=== PATIENT | female | born 1965 | race Caucasian/White ===

== ENCOUNTER → 2016-06-15 | Outpatient (CLI) | payer BC ==
[~2016-06-15] VITALS: Ht 165.1 cm; Wt 107.5 kg
[~2016-06-15] MED LIST: CIPRO500 MG PO; COMBIVENT RESPIM4 GM IH; DIOVAN80 MG PO; FISH OIL 1,0001 EACH PO; GLUCOPHAGE1000 MG PO; LOMOTIL TABLET1 EACH PO; Lopressor PO; METFORMIN HCL1000 MG PO; PIOGLITAZONE HC30 MG PO; PRAVACHOL20 MG PO; PRAVASTATIN SOD20 MG PO; QVAR 40 MCG IN7.3 GM IH; SIMVASTATIN20 MG PO; SYMBICORT60 INHALAT IH; VALSARTAN80 MG PO; VENTOLIN HFA18 GM IH; ZOLOFT50 MG PO
[2016-06-15 09:41] LABS: POINT-OF-CARE METER ID UU13113694
== END | disposition home or self-care (01) ==
LOC: AMB 08:46
PROVIDERS: Internal Medicine
DX: Z12.11 Encounter for screening for malignant neoplasm of colon (principal); D12.3 Benign neoplasm of transverse colon; D12.4 Benign neoplasm of descending colon; D12.5 Benign neoplasm of sigmoid colon; K64.8 Other hemorrhoids; J45.909 Unspecified asthma, uncomplicated; E11.9 Type 2 diabetes mellitus without complications; E78.5 Hyperlipidemia, unspecified; I10 Essential (primary) hypertension; E66.01 Morbid (severe) obesity due to excess calories; Z68.38 Body mass index [BMI] 38.0-38.9, adult; Z82.49 Family history of ischemic heart disease and other diseases of the circulatory system; Z83.49 Family history of other endocrine, nutritional and metabolic diseases; Z87.891 Personal history of nicotine dependence; Z79.84 Long term (current) use of oral hypoglycemic drugs
CPT/HCPCS: 80048; 82948; 88305; 93005; J2250; J3010